=== PATIENT | female | born 1935 | race Caucasian/White ===

== ENCOUNTER → 2020-12-13 | Outpatient (CLI) | payer MEDICARE | END | disposition home or self-care (01) | LOC: RAD 07:08 | PROVIDERS: ATTEND Psychiatry & Neurology Neurology | DX: I08.2 Rheumatic disorders of both aortic and tricuspid valves (principal); G31.9 Degenerative disease of nervous system, unspecified; R41.3 Other amnesia; Z86.73 Personal history of transient ischemic attack (TIA), and cerebral infarction without residual deficits | CPT/HCPCS: 70551; 93306 ==